=== PATIENT | female | born 1990 | race Caucasian/White ===

== ENCOUNTER 2020-02-09 05:50 | Emergency (ER) | payer OTHER, MEDICAID ==
[2020-02-09 06:38] VITALS: BP 128/84
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
[2020-02-09] MEDS ORDERED: LIDOCAINE 1% 2 ML VIAL MC ONE (08:01)
[2020-02-09] MEDS ORDERED: AZITHROMYCIN 250 MG TABLET PO STA (08:01)
[2020-02-09] MEDS ORDERED: ONDANSETRON ODT 4 MG TABLET TL STA (08:01)
[2020-02-09] MEDS ORDERED: cefTRIAXone 500 MG VIAL IM STA (08:01)
[2020-02-09 10:11] LABS: BILIRUBIN,URINE NEGATIVE (NEGATIVE); CLARITY,URINE CLEAR (CLEAR); GLUCOSE, URINE (UA) NEGATIVE (NEGATIVE); KETONES,URINE (UA) 15 mg/dL (NEGATIVE); LEUKOCYTE ESTERASE, URINE NEGATIVE (NEGATIVE); NITRITE,URINE NEGATIVE (NEGATIVE); OCCULT BLOOD,URINE TRACE-INTA (NEGATIVE); PH,URINE 5.5 PH (5.0-7.5); PROTEIN,URINE NEGATIVE (NEGATIVE); UROBILINOGEN,URINE 0.2 (NORMAL) E.U./dL (NORMAL)
[2020-02-09 10:13] LABS: HCG UR QUAL NEGATIVE
== END 2020-02-09 10:43 | disposition home or self-care (01) ==
LOC: ED 05:50
DX: T74.21XA Adult sexual abuse, confirmed, initial encounter (principal)
CPT/HCPCS: 0133C; 81003; 81025; 96372; A9270; Q0162; 81001; 87086; 87491; 87591; 87661; 87801

== ENCOUNTER 2022-04-09 14:55 | Outpatient (CLI) | payer MEDICAID | END 2022-04-09 23:59 | disposition EMS.NT | LOC: EMS 14:55 | DX: Z04.1 Encounter for examination and observation following transport accident (principal) ==